=== PATIENT | male | born 1950 | race African-American/Black ===

== ENCOUNTER 2017-09-13 16:30 | Emergency (ER) | payer OTHER ==
[~2017-09-13] VITALS: Ht 198.1 cm; Wt 127.0 kg
[~2017-09-13 16:30] MED LIST: 1-ME1LIQ PO; AMIT50 PO; ASPI81 PO; ATOR40TA PO; CYCL10TA PO; EFFE150C PO; GLIP5TAB8 PO; HYDR1CRE TOP; IBUP-232 PO; ISOS20TA38 PO; METHO500 PO; NITR.4 SL; OMEP20TA PO; PRAS10 PO; TERA5CAP3 PO; ZIPR20 PO
[2017-09-13 16:35] VITALS: BP 159/83; PULSE 74; RESP 17; TEMP 97.4; O2SAT 97
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
[2017-09-13] MEDS ORDERED: DICL75TA PO (18:05)
[2017-09-13] MEDS ORDERED: TRAM50TA PO ×2 (18:05→18:06)
[2017-09-13] MEDS ORDERED: IBUPROFEN 800 MG TAB PO ONE (18:15)
[2017-09-13] MEDS ORDERED: ACETAMINOPHEN/HYDROcodone 325 MG/5 MG TAB PO ONE (18:15)
[2017-09-13 18:40] VITALS: BP 130/77; TEMP 97.9
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
== END 2017-09-13 18:40 | disposition home or self-care (01) ==
LOC: NEPC 16:30
DX: S93.401A Sprain of unspecified ligament of right ankle, initial encounter (principal); S93.601A Unspecified sprain of right foot, initial encounter; M19.90 Unspecified osteoarthritis, unspecified site; I10 Essential (primary) hypertension; E78.00 Pure hypercholesterolemia, unspecified; I25.10 Atherosclerotic heart disease of native coronary artery without angina pectoris; E11.9 Type 2 diabetes mellitus without complications; F43.10 Post-traumatic stress disorder, unspecified; V43.52XA Car driver injured in collision with other type car in traffic accident, initial encounter
CPT/HCPCS: 73610; 73630; 99283; E0113; L1906